=== PATIENT | female | born 1990 | race Caucasian/White ===

== ENCOUNTER → 2017-07-20 | Outpatient (CLI) | payer OTHER ==
[~2017-07-20] MED LIST: AZULFIDINE500 MG PO; CARAFATE 1 GM TA1 GM PO; CIPRO500 MG PO; FLAGYL500 M1 PO; FLAGYL500 MG PO; FOLIC ACID1 MG PO; GENERESS PO; IBUPROFEN 200200 M1 PO; LORTAB 7.5-3251 EACH PO; NEXIUM40 MG PO; ONDANSETRON HCL4 M2 PO; PERCOCET 5-3251 EACH PO; PERCOCET PO; PHENERGAN50 MG RC; PREDNISONE 5 MG5 M1; PREVACID30 MG PO; ZEGERID 40 MG1 EACH PO; ZOFRAN4 MG PO
== END ==
LOC: ULTRA 09:07
DX: M79.662 Pain in left lower leg (principal); M79.89 Other specified soft tissue disorders